=== PATIENT | male | born 2000 | race Caucasian/White ===

== ENCOUNTER 2022-01-11 20:53 | Emergency (ER) | payer SELFPAY ==
[~2022-01-11 20:53] MED LIST: BENADRYL 25MG C25 MG PO; MEDROL DOSEPAK 24 MG PO; PEPCID40 MG PO
== END 2022-01-12 00:04 | disposition home or self-care (01) ==
LOC: ER1 20:53
DX: T78.40XA Allergy, unspecified, initial encounter (principal); Z88.0 Allergy status to penicillin
CPT/HCPCS: 96372; 99283; J2930

== ENCOUNTER 2022-03-13 21:15 | Emergency (ER) | payer SELFPAY | END 2022-03-14 00:57 | disposition home or self-care (01) | LOC: ER1 21:15 | DX: R09.89 Other specified symptoms and signs involving the circulatory and respiratory systems (principal); R52 Pain, unspecified; Z20.822 Contact with and (suspected) exposure to COVID-19 | CPT/HCPCS: 99283; U0003 ==